=== PATIENT | female | born 1985 | race Caucasian/White ===

== ENCOUNTER 2017-03-04 06:40 | Inpatient (IN) | payer OTHER ==
[2017-03-04] MEDS ORDERED: Nalbuphine 20 MG/1 ML Amp IVPUSH PRN (07:07)
[2017-03-04] MEDS ORDERED: Sodium Chloride 0.9% 10 ML Syringe FLUSH PRN (07:07)
[2017-03-04] MEDS ORDERED: Lactated Ringers 1,000 ML ONE (07:09)
[2017-03-04] MEDS ORDERED: Nalbuphine 20 MG/1 ML Amp ONE (07:12)
[2017-03-04] MEDS ORDERED: Oxytocin/Lactated Ringers 10 UNIT/1,000 ML BAG IV SCH ×2 (07:15)
[2017-03-04] MEDS ORDERED: fentaNYL 100 MCG/2 ML SDV EPIDUR PRN (07:48)
[2017-03-04] MEDS ORDERED: ePHEDrine 50 MG/ML SDV IVPUSH PRN (07:48)
[2017-03-04] MEDS ORDERED: diphenhydrAMINE 50 MG/ML SDV IVPUSH PRN (07:48)
[2017-03-04] MEDS ORDERED: Bupivacaine/fentaNYL/NS 100 ML Bag EPIDUR SCH (08:00)
--- NOTE | 2017-03-04 08:13 | PCM.PREANE ---
Preanesthetic Assessment - Anesthesia/Transfusion/Family Hx Anesthesia History: Prior Anesthesia Without Reaction Family History of Anesthesia Reaction: No Transfusion History: No Prior Transfusion(s) - Review of Systems General: No Symptoms Pulmonary: No Symptoms Cardiovascular: No Symptoms Gastrointestinal: No Symptoms Neurological: No Symptoms Other: Reports: None - Physical Assessment Pulse: 60 O2 Sat by Pulse Oximetry: 95 Respiratory Rate: 18 Blood Pressure: 116/64 Vital Signs: Last Vital Signs Temp 97.7 F 03/04/17 07:07 Pulse 60 03/04/17 07:00 Resp 18 03/04/17 07:07 BP 116/64 03/04/17 06:54 Pulse Ox 95 03/04/17 07:07 Height: 5 ft 6 in Weight: 69.853 kg ASA Class: 2 Mental Status: Alert & Oriented x3 Airway Class: Mallampati = 1 Dentition: Reports: Normal Dentition Thyro-Mental Finger Breadths: 3 Mouth Opening Finger Breadths: 3 ROM/Head Extension: Full Lungs: Clear to Auscultation, Normal Respiratory Effort Cardiovascular: Regular Rate, Regular Rhythm - Lab Values: Laboratory Last Values WBC 13.44 K/mm3 (3.98-10.04) H 03/04/17 07:18 RBC 4.44 M/mm3 (3.98-5.22) 03/04/17 07:18 Hgb 13.1 gm/L (11.2-15.7) 03/04/17 07:18 Hct 38.2 % (34.1-44.9) 03/04/17 07:18 MCV 86.0 fl (79.4-94.8) 03/04/17 07:18 MCH 29.5 pg (25.6-32.2) 03/04/17 07:18 MCHC 34.3 g/dl (32.2-35.5) 03/04/17 07:18 RDW Std Deviation 44.0 fL (36.4-46.3) 03/04/17 07:18 Plt Count 204 K/mm3 (182-369) 03/04/17 07:18 MPV 9.3 fl (9.4-12.3) L 03/04/17 07:18 Neut % (Auto) 87.3 % (34.0-71.1) H 03/04/17 07:18 Lymph % (Auto) 6.5 % (19.3-51.7) L 03/04/17 07:18 [place] % (Auto) 5.6 % (4.7-12.5) 03/04/17 07:18 Eos % (Auto) 0.1 (0.7-5.8) L 03/04/17 07:18 Baso % (Auto) 0.1 % (0.1-1.2) 03/04/17 07:18 Neut # (Auto) 11.74 K/mm3 (1.56-6.13) H 03/04/17 07:18 Lymph # (Auto) 0.88 K/mm3 (1.18-3.74) L 03/04/17 07:18 [place] # (Auto) 0.75 K/mm3 (0.24-0.36) H 03/04/17 07:18 Eos # (Auto) 0.01 K/mm3 (0.04-0.36) L 03/04/17 07:18 Baso # (Auto) 0.01 K/mm3 (0.01-0.08) 03/04/17 07:18 Manual Slide Review Normal smear 03/04/17 07:18 - Allergies Allergies/Adverse Reactions: Allergies Allergy/AdvReac Type Severity Reaction Status Date / Time No Known Allergies Allergy Verified 01/11/17 14:33 - Blood Blood Available: No - Acknowledgements Anesthesia Type Planned: Epidural Pt an Appropriate Candidate for the Planned Anesthesia: Yes Alternatives and Risks of Anesthesia Discussed w Pt/Guardian: Yes Pt/Guardian Understands and Agrees with Anesthesia Plan: Yes PreAnesthesia Questionnaire - Past Health History Medical/Surgical History: Denies Medical/Surgical History Cardiovascular History: Reports: None Respiratory History: Reports: None Gastrointestinal History: Reports: None [employer]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: Spontaneous : 2 (39 weeks) Para: 0 - Past Surgical History HEENT Surgical History: Reports: Oral Surgery Endocrine Surgical History: Reports: None - SUBSTANCE USE Smoking Status *Q: Never Smoker Tobacco Use Within Last Twelve Months: No Second Hand Smoke Exposure: No Days Per Week of Alcohol Use: 0 Recreational Drug Use History: No - HOME MEDS Home Medications: Home Meds Vit W-Ca,Fe,FA(<1 mg) [ Vitamins] 1 each PO DAILY 03/04/17 [ History] - CURRENT (IN HOUSE) MEDS Current Meds: Current Medications Diphenhydramine HCl (Benadryl) 25 mg IVPUSH Q6H PRN PRN Reason: pruritis Ephedrine Sulfate (Ephedrine Sulfate) 5 mg IVPUSH ASDIRECTED PRN PRN Reason: Hypotension Fentanyl (Sublimaze) 100 mcg EPIDUR Q3H PRN PRN Reason: Pain Fentanyl/Bupivacaine HCl (Fentanyl/Bupivacaine/Ns 2 Mcg-0.125% 100 Ml) 100 ml EPIDUR ASDIRECTED JODIE Lactated Ringer's (Ringers, Lactated) 1,000 mls @ 100 mls/hr IV ASDIRECTED JODIE Oxytocin/Lactated Ringer's (Pitocin In Lr 10 Units/1,000 Ml) 10 unit in 1,000 mls @ 500 mls/hr IV .CONTINUOUS JODIE Oxytocin/Lactated Ringer's (Pitocin In Lr 10 Units/1,000 Ml) 10 unit in 1,000 mls @ 12 mls/hr IV TITRATE JODIE; 2 MUNITS/MIN PRN Reason: Protocol Nalbuphine HCl (Nubain) 10 mg IVPUSH Q2H PRN PRN Reason: Pain (moderate 4-6) Last Admin: 03/04/17 07:20 Dose: 10 mg Sodium Chloride (Saline Flush) 10 ml FLUSH ASDIRECTED PRN PRN Reason: Keep Vein Open Discontinued Medications Lactated Ringer's (Ringers, Lactated) Confirm Administered Dose 1,000 mls @ as directed .ROUTE .STK-MED ONE Stop: 03/04/17 07:10 Nalbuphine HCl (Nubain) Confirm Administered Dose 20 mg .ROUTE .STK-MED ONE Stop: 03/04/17 07:13
[2017-03-04] MEDS: Lactated Ringers 1,000 ML IV SCH ×3 (09:36→09:40)
--- NOTE | 2017-03-04 09:44 | PCM.LDHP ---
L&D History of Present Illness - General Date of Service: 03/04/17 Admit Problem/Dx: Patient Status Order with Admit Dx/Problem 03/04/17 07:07 Patient Status [ADT] Routine Admission Diagnosis/Problem Admission Diagnosis/Problem Source of Information: Patient History Limitations: Reports: No Limitations - History of Present Illness Introduction:: Nuvia is a 31-year-old 2 para 0010 white female was admitted in active labor on the a.m. of 03/04/2017. Patient hasn't PARESH of 03/10/2017 as based upon a certain last menstrual period dated 06/03/2016. Ultrasound done on 10/23/2016 was consistent with her LMP dating. She began in labor early on the a.m. of the and has progressed to 5 cm upon admission to labor and delivery. heart tones are reassuring. Contractions are occurring every 3-4 minutes. They' re moderate in intensity to strong in intensity. In quickly progressed to 8 cm. Artificial rupture membranes resulted in clear amniotic fluid. course: Patient was seen for first visit at 9-4/7 weeks gestational age on 08/09/2016. During the course her care her vital signs remained stable. Her weight increased from 134-159 pounds for a 25 pound weight gain. Significant concerns. Ultrasound done at 21 weeks confirmed dates. laboratory testing: Blood is A+, antibody screen is negative. Initial hemoglobin was 13.4 g/dL and platelets were 220,000. She is rubella immune. Hepatitis B and HIV assays were negative. Second trimester testing showed a hemoglobin 11.3 and platelets of 189,000. Her 1 hour GTT was normal at 129. Antibody screen was again normal at that time. Her group B strep screen is negative. Her urine culture was normal. Allergies: none Medications: vitamins Past medical history: Miscarriage 1 at 10 weeks gestational age in August 2014 Past surgical history: [place] teeth extraction Family history: Father is secondary to lung cancer. Mother is alive and well. Patient has 4 sisters and 3 brothersall alive and well. all grandparents are deceased3 of them from old age at greater than 90 years of age. No anesthesia, bleeding, blood clotting problems noted in the family. Social history: Patient is . is Darryl. She does not use any significant muscle alcohol, drugs or tobacco. She lives in [place], [place] Review of systems: In general patient is having no concerns other than contractions. Skin:negative HEENT: Negative Lungs: No shortness of breath or infectious symptoms Cardiovascular: No exercise intolerance or chest pain Breasts: Changes associated with only GI: Negative : Changes associated with only Neurological: Negative Muscular skeletal: Occasional swelling Physical exam: In general the patient is well-developed, well-nourished, pleasant female who has an epidural in place at the time of this interview. She is comfortable. She appears to be good historian. Skin is warm and dry without lesions. HEENT, neck and back normal Lungs are clear with good breath sounds in all lung [place]. Cardiovascular exam shows regular rate and rhythm without murmurs. Breast exam deferred-patient plans to nurse Abdomen is protuberant fundal height consistent with term Cervix is 8 cm, 90% effaced, and +1 station, anterior, very soft, cephalic presentation Musculoskeletalwithin normal limits Pain Score: 10 - Related Data Allergies/Adverse Reactions: Allergies Allergy/AdvReac Type Severity Reaction Status Date / Time No Known Allergies Allergy Verified 01/11/17 14:33 Home Medications: Home Meds Vit W-Ca,Fe,FA(<1 mg) [ Vitamins] 1 each PO DAILY 03/04/17 [ History] Past Medical History - Past Health History Medical/Surgical History: Denies Medical/Surgical History Cardiovascular History: Reports: None Respiratory History: Reports: None Gastrointestinal History: Reports: None 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 - Past Surgical History HEENT Surgical History: Reports: Oral Surgery Endocrine Surgical History: Reports: None Social & Family History - Family History Family Medical History: Noncontributory - Tobacco Use Smoking Status *Q: Never Smoker Second Hand Smoke Exposure: No - Alcohol Use Days Per Week of Alcohol Use: 0 - Recreational Drug Use Recreational Drug Use: No H&P Review of Systems - Review of Systems: Review Of Systems: See Below L&D Exam - Exam Exam: See Below - Vital Signs Vital Signs: Last Vital Signs Temp 36.5 C 03/04/17 07:07 Pulse 60 03/04/17 08:13 Resp 18 03/04/17 08:13 BP 116/64 03/04/17 08:13 Pulse Ox 95 03/04/17 08:13 Weight: 69.853 kg - Patient Data Lab Results Last 24 hrs: Laboratory Results - last 24 hr 03/04/17 Range/Units 07:18 WBC 13.44 H (3.98-10.04) K/mm3 RBC 4.44 (3.98-5.22) M/mm3 Hgb 13.1 (11.2-15.7) gm/L Hct 38.2 (34.1-44.9) % MCV 86.0 (79.4-94.8) fl MCH 29.5 (25.6-32.2) pg MCHC 34.3 (32.2-35.5) g/dl RDW Std Deviation 44.0 (36.4-46.3) fL Plt Count 204 (182-369) K/mm3 MPV 9.3 L (9.4-12.3) fl Neut % (Auto) 87.3 H (34.0-71.1) % Lymph % (Auto) 6.5 L (19.3-51.7) % [place] % (Auto) 5.6 (4.7-12.5) % Eos % (Auto) 0.1 L (0.7-5.8) Baso % (Auto) 0.1 (0.1-1.2) % Neut # (Auto) 11.74 H (1.56-6.13) K/mm3 Lymph # (Auto) 0.88 L (1.18-3.74) K/mm3 [place] # (Auto) 0.75 H (0.24-0.36) K/mm3 Eos # (Auto) 0.01 L (0.04-0.36) K/mm3 Baso # (Auto) 0.01 (0.01-0.08) K/mm3 Manual Slide Review Normal smear Result Diagrams: 03/04/17 07:18 Problem List Initiated/Reviewed/Updated: Yes Orders Last 24hrs: Active Orders 24 hr Category Date Time Status Patient Status [ADT] Routine ADT 03/04/17 07:07 Active Activity as Tolerated [RC] PFP Care 03/04/17 07:07 Active Communication Order [RC] ASDIRECTED Care 03/04/17 07:07 Active Notify Provider [RC] ASDIRECTED Care 03/04/17 07:48 Active Notify Provider [RC] PFP Care 03/04/17 07:07 Active Notify Provider [RC] PRN Care 03/04/17 07:07 Active Peripheral IV Care [RC] . DIRECTED Care 03/04/17 07:07 Active Vital Signs [RC] PER UNIT ROUTINE Care 03/04/17 07:07 Active Regular Diet [DIET] Diet 03/04/17 Breakfast Active Bupivacaine/fentaNYL/NS [fentaNYL/Bupivacaine/NS 2 MCG- Med 03/04/17 08:00 Active 0.125% 100 ML] 100 ml EPIDUR ASDIRECTED Lactated Ringers [Ringers, Lactated] 1,000 ml Med 03/04/17 07:15 Active IV ASDIRECTED Nalbuphine [Nubain] Med 03/04/17 07:07 Active 10 mg IVPUSH Q2H PRN Oxytocin/Lactated Ringers [Pitocin in LR 10 Units/1,000 Med 03/04/17 07:15 Active ML] 10 unit in 1,000 ml IV .CONTINUOUS Oxytocin/Lactated Ringers [Pitocin in LR 10 Units/1,000 Med 03/04/17 07:15 Active ML] 10 unit in 1,000 ml IV TITRATE Sodium Chloride 0.9% [Saline Flush] Med 03/04/17 07:07 Active 10 ml FLUSH ASDIRECTED PRN diphenhydrAMINE [Benadryl] Med 03/04/17 07:48 Active 25 mg IVPUSH Q6H PRN ePHEDrine [ePHEDrine Sulfate] Med 03/04/17 07:48 Active 5 mg IVPUSH ASDIRECTED PRN fentaNYL [Sublimaze] Med 03/04/17 07:48 Active 100 mcg EPIDUR Q3H PRN Electronic Heart Tones Ext w TOCO [WOMSER] Oth 03/04/17 07:07 Ordered Routine Electronic Heart Tones Internal [WOMSER] Per Unit Oth 03/04/17 07:07 Ordered Routine Peripheral IV Insertion Adult [OM.PC] Routine Oth 03/04/17 07:07 Ordered Resuscitation Status Routine Resus Stat 03/04/17 07:07 Ordered Medication Orders Diphenhydramine HCl (Benadryl) 25 mg IVPUSH Q6H PRN PRN Reason: pruritis Ephedrine Sulfate (Ephedrine Sulfate) 5 mg IVPUSH ASDIRECTED PRN PRN Reason: Hypotension Fentanyl (Sublimaze) 100 mcg EPIDUR Q3H PRN PRN Reason: Pain Last Admin: 03/04/17 08:14 Dose: 100 mcg Fentanyl/Bupivacaine HCl (Fentanyl/Bupivacaine/Ns 2 Mcg-0.125% 100 Ml) 100 ml EPIDUR ASDIRECTED JODIE Last Admin: 03/04/17 08:13 Dose: 100 ml Lactated Ringer's (Ringers, Lactated) 1,000 mls @ 100 mls/hr IV ASDIRECTED JODIE Last Admin: 03/04/17 09:36 Dose: 100 mls/hr Oxytocin/Lactated Ringer's (Pitocin In Lr 10 Units/1,000 Ml) 10 unit in 1,000 mls @ 500 mls/hr IV .CONTINUOUS JODIE Oxytocin/Lactated Ringer's (Pitocin In Lr 10 Units/1,000 Ml) 10 unit in 1,000 mls @ 12 mls/hr IV TITRATE JODIE; 2 MUNITS/MIN PRN Reason: Protocol Nalbuphine HCl (Nubain) 10 mg IVPUSH Q2H PRN PRN Reason: Pain (moderate 4-6) Last Admin: 03/04/17 07:20 Dose: 10 mg Sodium Chloride (Saline Flush) 10 ml FLUSH ASDIRECTED PRN PRN Reason: Keep Vein Open Assessment/Plan Comment:: Assessment: 1. 39-1/7 week intrauterine , active labor with advanced cervical dilation of 8 cm 2. Group B strep screen negative 3. Patient plans to nurse 4. Low risk Plan: 1. Anticipate normal spontaneous vaginal delivery 2. Epidural for labor and analgesia 3. Support nursing 4. Routine care after delivery.
--- NOTE | 2017-03-04 12:11 | PCM.SN ---
- Free Text/Narrative Note: Nuvia is a 31-year-old 2 now para 1011 white female with an PARESH of 03/10 who was admitted early on 03/04/2017 in active labor. She was 5 cm dilated upon admission and oral every 2-3 minutes. She progressed rapidly to complete cervical dilation by approximately 1100 hrs. and began pushing. She did have an epidural placed for labor analgesia. heart tones remained normal throughout the course of the labor and delivery. Patient delivered a viable, brown, male infant with a weight of 3420 g (7 lbs. 9 oz.), Apgars of 9 and 9, a length of 21.0 inches in a left occiput anterior position at 1143 hrs. on 03/04/2017. The patient had a first-degree vaginal laceration was repaired with a simple [id number] suture of 3-0 Monocryl. Epidural was used for anesthesia. Pitocin was administered IV after delivery of the baby to facilitate increase in uterine tone and slow bleeding. The placenta delivered in a [place] presentation at 1152 hrs. It appeared complete, intact and had a three-vessel cord. It was discarded per patient desire. Patient plans to nurse. Condition: Good. Estimated blood loss: 100 mL.
[2017-03-04] MEDS ORDERED: Lanolin 100% Cream 7 GM Tube TOP PRN (12:17)
[2017-03-04] MEDS ORDERED: Benzocaine/Menthol 20%-0.5% Spray 56 GM Canister TOP PRN (12:17)
[2017-03-04] MEDS ORDERED: Acetaminophen 325 MG Tab PO PRN (12:17)
[2017-03-04] MEDS ORDERED: Ibuprofen 600 MG Tab PO PRN (12:17)
[2017-03-04] MEDS ORDERED: Docusate Sodium 100 MG Cap PO PRN (12:17)
[2017-03-04] MEDS ORDERED: Witch Hazel Medicated Pads 100/Jar TOP PRN (12:17)
--- NOTE | 2017-03-05 07:42 | PCM48HPAN ---
Post Anesthesia Note - EVALUATION WITHIN 48HRS OF ANESTHETIC Vital Signs in Normal Range: Yes Patient Participated in Evaluation: Yes Respiratory Function Stable: Yes Airway Patent: Yes Cardiovascular Function Stable: Yes Hydration Status Stable: Yes Pain Control Satisfactory: Yes Nausea and Vomiting Control Satisfactory: Yes Mental Status Recovered: Yes
--- NOTE | 2017-03-05 07:55 | PCM.SN ---
- Free Text/Narrative Note: day one: Patient doing well. Minimal lochia. Voiding well, nursing without problems. She is ambulating without concerns. Patient is afebrile, vital signs stable. Abdomen is flat, soft, nontender with uterus just below the umbilicus. Uterus is firm, nontender. Extremities are without significant edema or discomfort. Hemoglobin 13.3, hematocrit is 39.7, white blood count is 12.72, platelets are 222,000. Assessment: day 1-good recovery Plan: routine cares-home soon.
[2017-03-06 03:24] VITALS: BP 111/66
--- NOTE | 2017-03-06 06:35 | PCM.DCSUM1 ---
Discharge Summary - Hospital Course Free Text/Narrative:: Nuvia is a 31-year-old 2 now para 1011 white female with an PARESH of 03/10 who was admitted early on 03/04/2017 in active labor. She was 5 cm dilated upon admission and oral every 2-3 minutes. She progressed rapidly to complete cervical dilation by approximately 1100 hrs. and began pushing. She did have an epidural placed for labor analgesia. heart tones remained normal throughout the course of the labor and delivery. Patient delivered a viable, brown, male infant with a weight of 3420 g (7 lbs. 9 oz.), Apgars of 9 and 9, a length of 21.0 inches in a left occiput anterior position at 1143 hrs. on 03/04/2017. The patient had a first-degree vaginal laceration was repaired with a simple dxclfe-hp-ppydt suture of 3-0 Monocryl. Epidural was used for anesthesia. Pitocin was administered IV after delivery of the baby to facilitate increase in uterine tone and slow bleeding. The placenta delivered in a [place] presentation at 1152 hrs. It appeared complete, intact and had a three-vessel cord. It was discarded per patient desire. Patient plans to nurse. Condition: Good. Estimated blood loss: 100 mL. patient is done well. She is nursing without problems, voiding well and has had minimal lochia. Pain is under good control. Patient desires to be discharged today. Doing well. - Discharge Data Discharge Date: 03/06/17 Discharge Disposition: Home, Self-Care 01 Condition: Good - Patient Instructions Diet: Regular Diet as Tolerated (Nursing diet with increased calcium and calories) Driving: May Drive Today Showering/Bathing: May Shower (May take a bath) Notify Provider of: Fever, Increased Pain, Swelling and Redness, Nausea and/or Vomiting - Discharge Plan Home Medications: Home Meds Vit W-Ca,Fe,FA(<1 mg) [ Vitamins] 1 each PO DAILY 03/04/17 [ History] Ibuprofen [IJD: Ibuprofen] 600 mg PO Q4H PRN #30 tablet 03/06/17 [Rx] Referrals: Claudia Orozco MD [Physician] - (Return to Dr. Layne-2 weeks) - Discharge Summary/Plan Comment DC Time >30 min.: No Discharge Summary/Plan Comment: Discharge instructions: 1. Discharge home 2. Regular, high fiber, nursing diet was increased calcium and calories as recommended. 3. Activity and follow-up discussed with patient 4. Medications per home medication was printed, discussed with them given to the patient 5. Precautions given concern increased pain, bleeding, temperature, signs/ symptoms of DVT/PE 6. Return to clinic-primary care provider Diagnosis: Term delivered Condition: Good - Patient Data Vitals - Most Recent: Last Vital Signs Temp 36.6 C 03/06/17 03:04 Pulse 65 03/06/17 03:04 Resp 18 03/05/17 21:02 BP 111/66 03/06/17 03:04 Pulse Ox 99 03/06/17 03:04 Weight - Most Recent: 69.853 kg I&O - Last 24 hours: Intake & Output 03/05/17 03/05/17 03/06/17 14:59 22:59 06:59 Intake Total 120 Balance 120 Lab Results - Last 24 hrs: Laboratory Results - last 24 hr 03/05/17 Range/Units 06:45 WBC 12.72 H (3.98-10.04) K/mm3 RBC 4.48 (3.98-5.22) M/mm3 Hgb 13.3 (11.2-15.7) gm/L Hct 39.7 (34.1-44.9) % MCV 88.6 (79.4-94.8) fl MCH 29.7 (25.6-32.2) pg MCHC 33.5 (32.2-35.5) g/dl RDW Std Deviation 46.0 (36.4-46.3) fL Plt Count 222 (182-369) K/mm3 MPV 9.7 (9.4-12.3) fl Med Orders - Current: Current Medications Acetaminophen (Tylenol) 650 mg PO Q4H PRN PRN Reason: mild pain or fever Benzocaine/Menthol (Dermoplast Pain Relief [place]) 0 gm TOP ASDIRECTED PRN PRN Reason: Perineal Comfort Measure Last Admin: 03/04/17 17:00 Dose: 56 gm Docusate Sodium (Colace) 100 mg PO BID PRN PRN Reason: Constipation Emollient Ointment (Lansinoh Hpa) 0 gm TOP ASDIRECTED PRN PRN Reason: Sore Nipples Ibuprofen (Motrin) 600 mg PO Q4H PRN PRN Reason: Mild pain or fever Witch Wendy (Tucks) 1 pad TOP ASDIRECTED PRN PRN Reason: Hemorrhoid pain Last Admin: 03/04/17 17:00 Dose: 1 pad Discontinued Medications Diphenhydramine HCl (Benadryl) 25 mg IVPUSH Q6H PRN PRN Reason: pruritis Ephedrine Sulfate (Ephedrine Sulfate) 5 mg IVPUSH ASDIRECTED PRN PRN Reason: Hypotension Fentanyl (Sublimaze) 100 mcg EPIDUR Q3H PRN PRN Reason: Pain Last Admin: 03/04/17 08:14 Dose: 100 mcg Fentanyl/Bupivacaine HCl (Fentanyl/Bupivacaine/Ns 2 Mcg-0.125% 100 Ml) 100 ml EPIDUR ASDIRECTED JODIE Last Admin: 03/04/17 08:13 Dose: 100 ml Lactated Ringer's (Ringers, Lactated) 1,000 mls @ 100 mls/hr IV ASDIRECTED JODIE Last Admin: 03/04/17 09:40 Dose: 100 mls/hr Oxytocin/Lactated Ringer's (Pitocin In Lr 10 Units/1,000 Ml) 10 unit in 1,000 mls @ 500 mls/hr IV .CONTINUOUS JODIE Last Admin: 03/04/17 11:45 Dose: 500 mls/hr Oxytocin/Lactated Ringer's (Pitocin In Lr 10 Units/1,000 Ml) 10 unit in 1,000 mls @ 12 mls/hr IV TITRATE JODIE; 2 MUNITS/MIN PRN Reason: Protocol Lactated Ringer's (Ringers, Lactated) Confirm Administered Dose 1,000 mls @ as directed .ROUTE .STInMyRoom-MED ONE Stop: 03/04/17 07:10 Last Admin: 03/04/17 17:01 Dose: Not Given Nalbuphine HCl (Nubain) 10 mg IVPUSH Q2H PRN PRN Reason: Pain (moderate 4-6) Last Admin: 03/04/17 07:20 Dose: 10 mg Nalbuphine HCl (Nubain) Confirm Administered Dose 20 mg .ROUTE .STK-MED ONE Stop: 03/04/17 07:13 Last Admin: 03/04/17 17:01 Dose: Not Given Sodium Chloride (Saline Flush) 10 ml FLUSH ASDIRECTED PRN PRN Reason: Keep Vein Open *Q Meaningful Use (DIS) - VTE *Q VTE Criteria *Q: - Stroke *Q Stroke Criteria *Q: - AMI *Q AMI Criteria *Q:
== END 2017-03-06 11:35 | disposition home or self-care (01) | DRG 775 ==
LOC: JD.OB 06:40 → JD.OBCHECK 06:40 → JD.OB 07:07 → OBSVTOIN 11:43
PROVIDERS: ADMIT Obstetrics & Gynecology; ATTEND Obstetrics & Gynecology
PROC: 10E0XZZ Delivery of Products of Conception, External Approach (ICD-10-PCS; principal; 2017-03-04)
PROC: 0HQ9XZZ Repair Perineum Skin, External Approach (ICD-10-PCS; 2017-03-04)
PROC: 10907ZC Drainage of Amniotic Fluid, Therapeutic from Products of Conception, Via Natural or Artificial Opening (ICD-10-PCS; 2017-03-04)
PROC: 00HU33Z Insertion of Infusion Device into Spinal Canal, Percutaneous Approach (ICD-10-PCS; 2017-03-04)
PROC: 3E0R3CZ (ICD-10-PCS; 2017-03-04)
DX: O70.0 First degree perineal laceration during delivery (principal); O69.81X0 Labor and delivery complicated by cord around neck, without compression, not applicable or unspecified; Z3A.39 39 weeks gestation of pregnancy; Z37.0 Single live birth
CPT/HCPCS: 01967; 36415; 59409; 85025; 85027; A9270-GY; J2300; J2590; J3010; J7120